=== PATIENT | female | born 1975 | race Caucasian/White ===

== ENCOUNTER 2018-04-16 11:32 | Observation (INO) | payer BC ==
[~2018-04-16] VITALS: Ht 167.6 cm; Wt 115.5 kg
[~2018-04-16 11:32] MED LIST: Levothroid,Synthroid PO
[2018-04-16 12:27] LABS: HEMATOCRIT 38.4 % (36.0-46.0); HEMOGLOBIN 13.2 G/DL (11.9-15.5); MCH 32.1 PG (29.0-34.0); MCHC 34.4 G/DL (30.0-36.0); MCV 93.4 FL (83-99); PLATELET COUNT 266 K/uL (156-360); RBC DIS.WIDTH-CV 13.1 % (11.8-14.6); RBC DIS.WIDTH-SD 44.9 % (39-53); RED BLOOD COUNT 4.11 M/uL (3.80-5.20); WHITE BLOOD COUNT 8.3 K/uL (4.1-10.2)
[2018-04-16 12:43] LABS: CHLORIDE 104 mEq/L (99-109); SODIUM 141 mEq/L (136-147)
[2018-04-16 12:44] LABS: GLUCOSE 106 mg/dL (70-99)
[2018-04-16 12:48] LABS: CREATININE 0.8 mg/dL (0.6-1.3); GFR ESTIMATE (CALCULATED) > 59 mL/min/
[2018-04-16 12:49] LABS: UREA NITROGEN (BUN) 11 mg/dL (9-23)
[2018-04-16 12:56] LABS: TROP-I INTERPRETATION NEGATIVE; TROPONIN-I < 0.01 ng/mL (0.0-0.30)
[2018-04-16] MEDS ORDERED: SYNTHROID200 MCG PO (15:47)
[2018-04-16] MEDS ORDERED: CRESTOR10 MG PO (15:47)
[2018-04-16] MEDS ORDERED: ASPIRIN325 MG PO (15:48)
[2018-04-16] MEDS ORDERED: ZYRTEC10 M3 PO (15:48)
[2018-04-16 16:08] LABS: D-DIMER ELISA < 150.00 ng/mLDDU (<230)
[2018-04-16 16:53] VITALS: BP 137/86
[2018-04-16 18:36] LABS: TROP-I INTERPRETATION NEGATIVE; TROPONIN-I < 0.01 ng/mL (0.0-0.30)
[2018-04-16 19:02] VITALS: BP 129/66
[2018-04-16 23:02] VITALS: BP 122/57
[2018-04-17 01:20] LABS: TROP-I INTERPRETATION NEGATIVE; TROPONIN-I < 0.01 ng/mL (0.0-0.30)
[2018-04-17 03:49] VITALS: BP 108/58
[2018-04-17 09:03] VITALS: BP 131/86
[2018-04-17 11:42] VITALS: BP 130/70
[2018-04-17] MEDS ORDERED: ASPIR-LOW81 MG PO (12:06)
[2018-04-17] MEDS ORDERED: PRAVACHOL40 MG PO (12:09)
== END 2018-04-17 13:49 | disposition home or self-care (01) ==
LOC: EME 11:32 → 4SOUTH 15:20 → EDOF 15:20 → ENRESERV 15:48 → 4SOUTH 16:40
PROVIDERS: Internal Medicine
DX: R07.89 Other chest pain (principal); E03.9 Hypothyroidism, unspecified; E78.5 Hyperlipidemia, unspecified; I45.10 Unspecified right bundle-branch block; E11.9 Type 2 diabetes mellitus without complications; Z83.3 Family history of diabetes mellitus; Z82.49 Family history of ischemic heart disease and other diseases of the circulatory system; E66.01 Morbid (severe) obesity due to excess calories; Z68.41 Body mass index [BMI] 40.0-44.9, adult; Z79.82 Long term (current) use of aspirin
CPT/HCPCS: 71046; 80048; 84484; 85027; 85379; 93005; 99281; 99285; G0378; J1644